=== PATIENT | male | born 1990 | race Two or more races ===

== ENCOUNTER → 2024-12-26 | Outpatient (CLI) | payer MEDICAID, SELFPAY ==
--- NOTE | 2024-12-26 09:10 | XR_ITS ---
EXAMINATION: PA lateral chest 2 views TECHNIQUE: Upright PA lateral chest 2 views Date and time: December 26, 2024, 0957 hours INDICATIONS: Preop, diagnosis hypertension. FINDINGS: Normal heart size Lungs are clear. The osseous structures are intact. IMPRESSION: No active disease
== END | disposition home or self-care (01) ==
DX: Z01.818 Encounter for other preprocedural examination (principal)
CPT/HCPCS: 71046